=== PATIENT | male | born 1975 | race African-American/Black ===

== ENCOUNTER 2023-09-04 11:51 | Emergency (ER) | payer SELFPAY ==
[~2023-09-04] VITALS: Ht 177.8 cm; Wt 77.3 kg
[~2023-09-04 11:51] MED LIST: BACTRIM DS 8001 TAB PO; CEPHALEXIN500 M1 PO; FLEXERIL5 MG PO; LORTAB 5/500 501 TAB PO; NO HOME MEDICATIONS; TYLENOL 325MG325 MG PO
[2023-09-04 12:09] VITALS: TEMP 97.4
[2023-09-04] MEDS ORDERED: cefTRIAXone 1 G,Lidocaine PF 1% 2.1 ML IM ONE (12:45)
[2023-09-04 13:00] VITALS: BP 153/107; PULSE 80
== END 2023-09-04 13:05 | disposition home or self-care (01) ==
LOC: COL.ER 11:51
DX: K04.7 Periapical abscess without sinus (principal)
CPT/HCPCS: J0696

== ENCOUNTER 2023-12-07 17:36 | Emergency (ER) | payer OTHER ==
[~2023-12-07] VITALS: Ht 175.3 cm; Wt 68.2 kg
[2023-12-07 18:01] VITALS: TEMP 97.9
[2023-12-07 19:37] LABS: BASO # 0.1 K/mm3 (0.0-0.2); BASO % 0.6 % (0.0-2.0); EOS # 0.1 K/mm3 (0.0-0.7); EOS % 1.5 % (0.0-4.0); GRAN # 4.7 K/mm3 (1.4-6.5); GRAN % 49.3 % (42.2-75.2); HEMATOCRIT 46.4 % (42.0-52.0); HEMOGLOBIN 15.3 g/dl (13.5-18.0); LYMPH # 3.8 K/mm3 (1.2-3.4); LYMPH % 39.8 % (20.0-51.0); MEAN CELL VOLUME 93 fl (80.0-100.0); MEAN CORPUSCULAR HEMOGLOBIN 31 pg (27-31); MEAN CORPUSCULAR HGB CONC 33 g/dl (33.0-37.0); MEAN PLATELET VOLUME 10.7 fl (7.4-10.4); MONO # 0.8 K/mm3 (0.1-0.6); MONO % 8.5 % (1.7-9.3); PLATELET COUNT 390 K/mm3 (130-400); RED BLOOD COUNT 5.01 M/mm3 (4.20-5.60); REDCELL DISTRIBUTION WIDTH-CV 14.2 % (11.5-14.5)
[2023-12-07 19:39] LABS: INR 1.1 (0.8-3.0); PROTHROMBIN TIME 12.4 SECONDS (9.7-12.8)
[2023-12-07 19:41] LABS: URINE APPEARANCE CLOUDY (CLEAR/HAZY); URINE BLOOD NEGATIVE (NEGATIVE); URINE COLOR YELLOW (YELLOW); URINE GLUCOSE NEGATIVE (NEGATIVE); URINE KETONE NEGATIVE (NEGATIVE); URINE NITRATE NEGATIVE (NEGATIVE); URINE PROTEIN(semi-quant) TRACE (NEGATIVE)
[2023-12-07 19:50] LABS: ALANINE AMINOTRANSFERASE 12 U/L (0-55); ALBUMIN 4.1 g/dL (3.5-5.0); ALKALINE PHOSPHATASE 52 U/L (40-150); ANION GAP 11 mmol/L (7-16); AST,SGOT 13 U/L (5-34); BILIRUBIN,TOTAL 0.6 mg/dL (0.2-1.2); BLOOD UREA NITROGEN 29 mg/dL (9-21); CALCIUM 9.3 mg/dL (8.4-10.2); CHLORIDE 97 mEq/L (98-107); CREATININE, serum 1.59 mg/dL (0.72-1.25); GLUCOSE 92 mg/dL (70-99); MAGNESIUM 2.2 mg/dL (1.6-2.6); POTASSIUM 3.1 mEq/L (3.5-4.5); SODIUM 140 mEq/L (136-145); TOTAL PROTEIN 7.4 g/dl (6.2-8.1)
[2023-12-07 20:00] LABS: TRICYCLIC ANTIDEPRESS URINE NEGATIVE (NEGATIVE)
[2023-12-07] MEDS ORDERED: NS 1,000 ML IV ONE (20:00)
[2023-12-07 20:10] LABS: TSH w REFLEX 1.719 uIU/mL (0.350-4.940)
[2023-12-07 20:12] LABS: COLLECTION METHOD CLEAN CATCH; MUCOUS PRESENT (NOT PRESENT); SQUAMOUS EPITHELIAL 0-2 /hpf (0-10); TROPONIN-I < 0.010 ng/mL (0.00-0.033); URINE BACTERIA NONE SEEN /hpf (NONE SEEN); URINE RBC 0-2 /hpf (0-2)
[2023-12-07] MEDS ORDERED: KLOR-CON 1010 MEQ PO (21:02)
[2023-12-07 21:10] VITALS: BP 115/84; PULSE 86
== END 2023-12-07 21:16 | disposition home or self-care (01) ==
LOC: COL.ER 17:36
PROVIDERS: Family Medicine
DX: M62.838 Other muscle spasm (principal); E87.6 Hypokalemia; F15.90 Other stimulant use, unspecified, uncomplicated
CPT/HCPCS: J7030